=== PATIENT | male | born 1995 | race American Indian/Alaskan Native ===

== ENCOUNTER 2019-02-14 02:03 | Emergency (ER) | payer SELFPAY ==
[2019-02-14 02:14] VITALS: BP 122/80
--- NOTE | 2019-02-14 02:41 | XRay Report ---
Left knee-3 views INDICATION: knee trauma. Acute generalized left knee pain COMPARISON: None. IMPRESSION: No acute osseous or soft tissue abnormality. No significant DJD. Signer Name: Jeronimo Bustamante MD Signed: 02/14/2019 2:37 AM Workstation Name: [id number]
[2019-02-14] MEDS ORDERED: BOOSTRIX IM ONE (03:35)
[2019-02-14] MEDS ORDERED: IBUPROFEN PO ONE (03:35)
[2019-02-14] MEDS ORDERED: TYLENOL PO ONE (03:35)
--- NOTE | 2019-02-14 04:11 | Emergency Department Report ---
ED Lower Extremity HPI - General Chief Complaint: Extremity Injury, Lower Stated Complaint: KNEE INJURY Time Seen by Provider: 02/14/19 03:35 Source: patient Mode of arrival: Ambulatory Limitations: No Limitations - History of Present Illness Initial Comments: Patient is a 23-year-old -[place] male with no past medical history presents to the ED with complaint of acute onset persistent diarrhea left knee and left lower leg pain after he twisted, lost balance and fell down on the street about to undergo. Patient also complains of right knee abrasions. Patient stated that he is unable to bear weight on the left leg because of pain. Patient denies head or neck injury, back pain, dizziness, syncope, chest pain, shortness of breath, numbness and tingling or weakness of lower extremities bilaterally or loss of consciousness MD Complaint: knee injury (left knee), leg injury (left) -: Sudden, hour(s) (2), During the night Injury: Leg: Left (lower), Knee: Left (pain, swelling) Type of Injury: blunt Place: street/outdoors Severity: moderate Severity scale (0 -10): 6 Worsens With: nothing Context: fall, walking Associated Symptoms: snap/pop sensation, swelling, able to partially bear weight. denies: numbness, tingling, unable to bear weight, ambulatory - Related Data Previous Rx's Medication Instructions Recorded Last Taken Type Ibuprofen [Motrin] 600 mg PO Q8H PRN #20 tablet 02/14/19 Unknown Rx tiZANidine [Zanaflex 4mg TAB] 4 mg PO Q8H PRN #15 tablet 02/14/19 Unknown Rx traMADol [Ultram] 50 mg PO Q6HR PRN #12 tablet 02/14/19 Unknown Rx Allergies Allergy/AdvReac Type Severity Reaction Status Date / Time No Known Allergies Allergy Unverified 02/14/19 02:15 ED Review of Systems ROS: Stated complaint: KNEE INJURY Other details as noted in HPI Constitutional: denies: chills, fever Eyes: denies: eye pain, eye discharge, vision change ENT: denies: ear pain, throat pain Respiratory: denies: cough, shortness of breath, wheezing Cardiovascular: denies: chest pain, palpitations Endocrine: no symptoms reported Gastrointestinal: denies: abdominal pain, nausea, diarrhea Genitourinary: denies: urgency, dysuria Musculoskeletal: arthralgia (left knee and lower leg pain; abrasion on right knee), myalgia. denies: back pain, joint swelling Skin: denies: rash, lesions Neurological: denies: headache, weakness, paresthesias Psychiatric: denies: anxiety, depression Hematological/Lymphatic: denies: easy bleeding, easy bruising ED Past Medical Hx - Past Medical History Previous Medical History?: No - Surgical History Past Surgical History?: No - Social History Smoking Status: Current Every Day Smoker - Medications Home Medications: Home Medications Medication Instructions Recorded Confirmed Last Taken Type Ibuprofen [Motrin] 600 mg PO Q8H PRN #20 tablet 02/14/19 Unknown Rx tiZANidine [Zanaflex 4mg TAB] 4 mg PO Q8H PRN #15 tablet 02/14/19 Unknown Rx traMADol [Ultram] 50 mg PO Q6HR PRN #12 tablet 02/14/19 Unknown Rx ED Physical Exam - General Limitations: No Limitations General appearance: alert - Head Head exam: Present: atraumatic, normocephalic, normal inspection - Eye Eye exam: Present: normal appearance, PERRL, EOMI. Absent: scleral icterus Pupils: Present: normal accommodation - ENT ENT exam: Present: normal exam, normal orophraynx, mucous membranes moist, TM's normal bilaterally, normal external ear exam - Neck Neck exam: Present: normal inspection, full ROM. Absent: tenderness, meningismus, lymphadenopathy, thyromegaly - Respiratory Respiratory exam: Present: normal lung sounds bilaterally. Absent: respiratory distress, wheezes, rales, rhonchi, chest wall tenderness, accessory muscle use, decreased breath sounds - Cardiovascular Cardiovascular Exam: Present: regular rate, normal rhythm, normal heart sounds. Absent: systolic murmur, diastolic murmur, rubs, gallop - GI/Abdominal GI/Abdominal exam: Present: soft, normal bowel sounds. Absent: distended, tenderness, guarding, rigid, hyperactive bowel sounds, hypoactive bowel sounds, organomegaly - Rectal Rectal exam: Present: deferred - Extremities Exam Extremities exam: Present: normal inspection, tenderness (Palpable left knee an dlower leg tenderness; mild abrasion on anterior right knee), normal capillary refill, joint swelling (left knee). Absent: pedal edema - Back Exam Back exam: Present: normal inspection, full ROM. Absent: tenderness, CVA tenderness (R), CVA tenderness (L), muscle spasm, paraspinal tenderness, vertebral tenderness - Neurological Exam Neurological exam: Present: alert, oriented X3, CN II-XII intact, normal gait, reflexes normal - Psychiatric Psychiatric exam: Present: normal affect, normal mood - Skin Skin exam: Present: warm, dry, intact, normal color. Absent: rash ED Course Vital Signs 02/14/19 02/14/19 02:13 03:47 Temperature 98.0 F Pulse Rate 63 Respiratory 18 14 Rate Blood Pressure 122/80 O2 Sat by Pulse 100 Oximetry - Reevaluation(s) Reevaluation #1: 02/14/19 04:12 This is a 23-year-old -[place] male with no past medical history who presents to the ED with left knee and left leg pain after he slipped and fell down on the street while walking about 4 hours ago. In the ED, patient is alert and oriented 3 and is not in any distress but in pain. Left knee x-ray shows no acute fractures or subluxations. The patient was treated for pain in the ED and the left knee was splinted as The patient given crutches. Patient was also given tetanus vaccination in the ED. Patient was discharged home on pain medications and muscle relaxants and advised to follow-up with his primary care physician in 7-10 days for reevaluation or return to the ED immediately if symptoms get worse. ED Lower Extremity MDM - Radiology Data Radiology results: report reviewed, image reviewed Left knee x-ray shows no acute fractures or subluxations. - Medical Decision Making This is a 23-year-old -[place] male with no past medical history who presents to the ED with left knee and left leg pain after he slipped and fell down on the street while walking about 4 hours ago. In the ED, patient is alert and oriented 3 and is not in any distress but in pain. Left knee x-ray shows no acute fractures or subluxations. The patient was treated for pain in the ED and the left knee was splinted as The patient given crutches. Patient was also given tetanus vaccination in the ED. Patient was discharged home on pain medications and muscle relaxants and advised to follow-up with his primary care physician in 7-10 days for reevaluation or return to the ED immediately if symptoms get worse. - Differential Diagnosis knee fracture; knee sprain, muscle strain, abrasions, contusion Critical care attestation.: If time is entered above; I have spent that time in minutes in the direct care of this critically ill patient, excluding procedure time. ED Disposition Clinical Impression: Sprain of left knee Qualifiers: Encounter type: initial encounter Involved ligament of knee: unspecified ligament Qualified Code(s): S83.92XA - Sprain of unspecified site of left knee, initial encounter Muscle strain of left lower extremity Qualifiers: Encounter type: initial encounter Qualified Code(s): S86.912A - Strain of unspecified muscle(s) and tendon(s) at lower leg level, left leg, initial encounter Abrasion of right knee Qualifiers: Encounter type: initial encounter Qualified Code(s): S80.211A - Abrasion, right knee, initial encounter Disposition: TO HOME OR SELFCARE Is pt being admited?: No Does the pt Need Aspirin: No Condition: Stable Instructions: Muscle Strain (ED), Knee Sprain (ED), Abrasion (ED) Additional Instructions: Take medications with food, drink plenty of fluids and follow up with your primary care physician in 7-10 days for reevaluation. Return to the ED immediately if symptoms get worse. Prescriptions: Ibuprofen [Motrin] 600 mg PO Q8H PRN #20 tablet PRN Reason: Pain traMADol [Ultram] 50 mg PO Q6HR PRN #12 tablet PRN Reason: Pain tiZANidine [Zanaflex 4mg TAB] 4 mg PO Q8H PRN #15 tablet PRN Reason: Spasms Referrals: [facility] [Outside] - 3-5 Days Time of Disposition: 04:09 Print Language: ITALIAN
== END 2019-02-14 04:20 | disposition home or self-care (01) ==
LOC: ED 02:03
DX: S76.912A Strain of unspecified muscles, fascia and tendons at thigh level, left thigh, initial encounter (principal); S80.211A Abrasion, right knee, initial encounter; F17.200 Nicotine dependence, unspecified, uncomplicated; Z79.899 Other long term (current) drug therapy; X50.1XXA Overexertion from prolonged static or awkward postures, initial encounter; Y93.89 Activity, other specified; Y92.89 Other specified places as the place of occurrence of the external cause; Y99.8 Other external cause status
CPT/HCPCS: 90715; 99283